=== PATIENT | male | born 1990 | race Caucasian/White ===

== ENCOUNTER 2016-06-09 21:20 | Emergency (ER) | payer BC | END 2016-06-09 22:50 | disposition left against medical advice (07) | LOC: ER 21:25 | DX: Z53.21 Procedure and treatment not carried out due to patient leaving prior to being seen by health care provider (principal) ==

== ENCOUNTER 2020-07-21 20:12 | Emergency (ER) | payer BC, OTHER ==
[~2020-07-21] VITALS: Ht 165.1 cm; Wt 77.1 kg
--- NOTE | 2020-07-21 20:27 | NUR ---
DR. SAWYER AT BEDSIDE FOR MSE.
[2020-07-21] MEDS ORDERED: KETOROLAC TROMETHAMINE 15 MG INJ IVP ONE (20:45)
[2020-07-21] MEDS ORDERED: DEXAMETHASONE SOD PHOSPHATE 4 MG INJ IV ONE (20:45)
[2020-07-21] MEDS ORDERED: IV NORMAL SALINE 1000 ML BAG IV ONE (20:45)
[2020-07-21] MEDS ORDERED: diphenhydrAMINE 50 MG/1 ML VIAL IV ONE (20:45)
[2020-07-21] MEDS ORDERED: METOCLOPRAMIDE HCL 10 MG/2 ML VIAL IV ONE (20:45)
[2020-07-21] MEDS ORDERED: KETOROLAC TROMETHAMINE 15 MG INJ ONE (20:50)
[2020-07-21] MEDS ORDERED: diphenhydrAMINE 50 MG/1 ML VIAL ONE (20:50)
[2020-07-21] MEDS ORDERED: METOCLOPRAMIDE HCL 10 MG/2 ML VIAL ONE (20:50)
[2020-07-21] MEDS ORDERED: DEXAMETHASONE SOD PHOSPHATE 10 MG INJ ONE (20:50)
[2020-07-21 20:51] LABS: BASOPHILS % (AUTO) 0.6 % (0.0-2.0); EOSINOPHILS % (AUTO) 3.1 % (0.0-7.0); HEMATOCRIT 44.8 % (36.7-47.1); HEMOGLOBIN 15.1 g/dL (12.5-16.3); LYMPHOCYTES % (AUTO) 34.1 % (20.5-51.5); MEAN CORPUSCULAR HGB CONC 34 g/dL (32.5-36.3); MEAN CORPUSCULAR VOLUME 83.1 fL (73.0-96.2); MONOCYTES % (AUTO) 7.8 % (0.0-11.0); NEUTROPHILS % (AUTO) 54.4 % (38.5-71.5); PLATELET COUNT (AUTO) 226 K/uL (152-348)
[2020-07-21 20:52] LABS: EOSINOPHILS # (AUTO) 0.2 K/uL (0.0-0.7); LYMPHOCYTES # (AUTO) 2.4 K/uL (20.0-40.0); MONOCYTES # (AUTO) 0.5 K/uL (2.0-10.0); NEUTROPHILS # (AUTO) 3.8 K/uL (1.8-8.9)
[2020-07-21 20:56] LABS: POTASSIUM 3.7 mmol/L (3.5-5.1)
[2020-07-21] MEDS ORDERED: METO-295 PO (22:03)
[2020-07-21] MEDS ORDERED: IBUP-1955 PO (22:03)
[2020-07-21 22:07] VITALS: BP 136/90
--- NOTE | 2020-07-21 22:07 | NUR ---
Patient discharged to home in stable condition. Written and verbal after care instructions given. Patient verbalizes understanding of instructions. Stressed follow up or return to ER for worsening s/s.
[2020-07-21 22:08] LABS: *AMPHETAMINE, URINE NEGATIVE (NEGATIVE); *CANNABINOID, URINE NEGATIVE (NEGATIVE); *COCCAINE, URINE NEGATIVE (NEGATIVE); *OPIATE, URINE NEGATIVE (NEGATIVE); *PHENCYCLIDINE SCREEN,URINE NEGATIVE (NEGATIVE)
[2020-07-21] MEDS ORDERED: ACETAMINOPHEN ES 500 MG TABLET ONE (22:11)
[2020-07-21] MEDS ORDERED: ACETAMINOPHEN 325 MG TABLET PO ONE (22:15)
== END 2020-07-21 22:08 | disposition home or self-care (01) ==
LOC: ER 20:12
DX: B34.9 Viral infection, unspecified (principal); R51.9 Headache, unspecified; Z20.822 Contact with and (suspected) exposure to COVID-19; R03.0 Elevated blood-pressure reading, without diagnosis of hypertension
CPT/HCPCS: 36415; 71045; 80048; 80307; 85025; 87426; 96361; 96374; 96375; 99284; J1100; J1200; J1885; J2765; A9150; J7030